=== PATIENT | female | born 1965 | race African-American/Black ===

== ENCOUNTER 2017-07-20 00:10 | Inpatient (IN) | payer OTHER ==
[2017-07-20] MEDS ORDERED: ASPIRIN 81 MG PO STA (00:12)
[2017-07-20] MEDS ORDERED: NITROGLYCERIN OINT 1 INCH/GM PACKET TOPICAL STA (00:12)
--- NOTE | 2017-07-20 00:16 | ED ---
General Adult HPI - General Stated complaint: chest pain Time Seen by Provider: 07/20/17 00:10 Source: RN notes reviewed - History of Present Illness Initial comments: This a 52-year-old female presents emergency department with past medical history significant for congestive heart failure pulmonary embolisms high blood pressure and smoking. Patient comes in tonight because she's had about 45 minutes of chest pain which radiates to her back. Patient states she is also mildly short of breath. Patient denies any diaphoresis. Patient denies any nausea. Patient states she's had no abdominal pain she denies nausea vomiting diarrhea. Patient denies headache she denies numbness or weakness. Patient denies lightheadedness or dizziness. Patient denies any recent fever chills or cough. Patient states yesterday she had chest pain went to the hospital across town and they discharged her home from the ER yesterday. Patient requested our facility today. Patient states she's only been in town 5 days because [facility] - Related Data Allergies Allergy/AdvReac Type Severity Reaction Status Date / Time No Known Allergies Allergy Verified 07/20/17 00:19 Review of Systems ROS Statement: Those systems with pertinent positive or pertinent negative responses have been documented in the HPI. ROS Other: All systems not noted in ROS Statement are negative. General Exam - General Exam Comments Initial Comments: GENERAL: Patient is well-developed and well-nourished. Patient is nontoxic and well- hydrated and is in mild distress. ENT: Neck is soft and supple. No significant lymphadenopathy is noted. Oropharynx is clear. Moist mucous membranes. Neck has full range of motion without eliciting any pain. EYES: The sclera were anicteric and conjunctiva were pink and moist. Extraocular movements were intact and pupils were equal round and reactive to light. Eyelids were unremarkable. PULMONARY: Unlabored respirations. Good breath sounds bilaterally. No audible rales rhonchi or wheezing was noted. CARDIOVASCULAR: There is a regular rate and rhythm without any murmurs gallops or rubs. ABDOMEN: Soft and nontender with normal bowel sounds. No palpable organomegaly was noted. There is no palpable pulsatile mass. SKIN: Skin is clear with no lesions or rashes and otherwise unremarkable. NEUROLOGIC: Patient is alert and oriented x3. Cranial nerves II through XII are grossly intact. Motor and sensory are also intact. Normal speech, volume and content. Symmetrical smile. MUSCULOSKELETAL: Normal extremities with adequate strength and full range of motion. LYMPHATICS: No significant lymphadenopathy is noted PSYCHIATRIC: Normal psychiatric evaluation. Normal interpersonal interactions appears functionally intact in deals appropriately with others. No signs of depression. No signs of anxiety. Course Vital Signs 07/20/17 07/20/17 07/20/17 00:11 00:22 00:57 Temperature 97.8 F Pulse Rate 65 71 Respiratory 18 18 18 Rate Blood Pressure 127/74 127/74 O2 Sat by Pulse 100 99 Oximetry Medical Decision Making - Medical Decision Making EKG shows normal sinus rhythm at 71 bpm SC interval 166 QRS is 76 QT intervals 438 QTC is 475. Patient's EKG shows no ST segment elevation or depression or T wave abnormalities are noted - Lab Data Result diagrams: 07/20/17 00:18 07/20/17 00:18 Lab Results 07/20/17 07/20/17 07/20/17 Range/Units 00:18 00:18 00:18 WBC 4.3 (3.8-10.6) k/uL RBC 4.52 (3.80-5.40) m/uL Hgb 13.2 (11.4-16.0) gm/dL Hct 41.9 (34.0-46.0) % MCV 92.7 (80.0-100.0) fL MCH 29.3 (25.0-35.0) pg MCHC 31.6 (31.0-37.0) g/dL RDW 12.7 (11.5-15.5) % Plt Count 231 (150-450) k/uL Neutrophils % (Manual) 48 % Lymphocytes % (Manual) 38 % Monocytes % (Manual) 12 % Eosinophils % (Manual) 2 % Neutrophils # (Manual) 2.06 (1.3-7.7) k/uL Lymphocytes # (Manual) 1.63 (1.0-4.8) k/uL Monocytes # (Manual) 0.52 (0-1.0) k/uL Eosinophils # (Manual) 0.09 (0-0.7) k/uL Nucleated RBCs 0 (0-0) /100 WBC Manual Slide Review Performed PT (9.0-12.0) sec INR (<1.2) APTT (22.0-30.0) sec D-Dimer (<0.60) mg/L FEU Sodium 141 (137-145) mmol/L Potassium 4.6 (3.5-5.1) mmol/L Chloride 110 H (98-107) mmol/L Carbon Dioxide 21 L (22-30) mmol/L Anion Gap 10 mmol/L BUN 24 H (7-17) mg/dL Creatinine 0.80 (0.52-1.04) mg/dL Est GFR (MDRD) Af Amer >60 (>60 ml/min/1.73 sqM) Est GFR (MDRD) Non-Af >60 (>60 ml/min/1.73 sqM) Glucose 101 H (74-99) mg/dL Calcium 9.0 (8.4-10.2) mg/dL Magnesium 1.9 (1.6-2.3) mg/dL Total Bilirubin 0.3 (0.2-1.3) mg/dL AST 28 (14-36) U/L ALT 42 (9-52) U/L Alkaline Phosphatase 106 (38-126) U/L Total Creatine Kinase 67 (30-135) U/L CK-MB (CK-2) 0.4 (0.0-2.4) ng/mL CK-MB (CK-2) Rel Index 0.6 Troponin I <0.012 (0.000-0.034) ng/mL NT-Pro-B Natriuret Pep pg/mL Total Protein 6.9 (6.3-8.2) g/dL Albumin 3.4 L (3.5-5.0) g/dL 07/20/17 07/20/17 Range/Units 00:18 00:18 WBC (3.8-10.6) k/uL RBC (3.80-5.40) m/uL Hgb (11.4-16.0) gm/dL Hct (34.0-46.0) % MCV (80.0-100.0) fL MCH (25.0-35.0) pg MCHC (31.0-37.0) g/dL RDW (11.5-15.5) % Plt Count (150-450) k/uL Neutrophils % (Manual) % Lymphocytes % (Manual) % Monocytes % (Manual) % Eosinophils % (Manual) % Neutrophils # (Manual) (1.3-7.7) k/uL Lymphocytes # (Manual) (1.0-4.8) k/uL Monocytes # (Manual) (0-1.0) k/uL Eosinophils # (Manual) (0-0.7) k/uL Nucleated RBCs (0-0) /100 WBC Manual Slide Review PT 11.2 (9.0-12.0) sec INR 1.1 (<1.2) APTT 25.0 (22.0-30.0) sec D-Dimer 0.58 (<0.60) mg/L FEU Sodium (137-145) mmol/L Potassium (3.5-5.1) mmol/L Chloride (98-107) mmol/L Carbon Dioxide (22-30) mmol/L Anion Gap mmol/L BUN (7-17) mg/dL Creatinine (0.52-1.04) mg/dL Est GFR (MDRD) Af Amer (>60 ml/min/1.73 sqM) Est GFR (MDRD) Non-Af (>60 ml/min/1.73 sqM) Glucose (74-99) mg/dL Calcium (8.4-10.2) mg/dL Magnesium (1.6-2.3) mg/dL Total Bilirubin (0.2-1.3) mg/dL AST (14-36) U/L ALT (9-52) U/L Alkaline Phosphatase (38-126) U/L Total Creatine Kinase (30-135) U/L CK-MB (CK-2) (0.0-2.4) ng/mL CK-MB (CK-2) Rel Index Troponin I (0.000-0.034) ng/mL NT-Pro-B Natriuret Pep 107 pg/mL Total Protein (6.3-8.2) g/dL Albumin (3.5-5.0) g/dL Disposition Clinical Impression: Unstable angina pectoris Disposition: ADMITTED IP TO THIS HOSP Referrals: None,Stated [Primary Care Provider] - 1-2 days Time of Disposition: 02:20
[2017-07-20 00:28] LABS: Aty Lym Flag Slight; CH 29.6; CHCM 32.1; HCT 41.9 % (34.0-46.0); HDW 2.48; HGB 13.2 gm/dL (11.4-16.0); MCH 29.3 pg (25.0-35.0); MCHC 31.6 g/dL (31.0-37.0); MCV 92.7 fL (80.0-100.0); Mean Platelet Volume 7.3; RBC 4.52 m/uL (3.80-5.40); RDW 12.7 % (11.5-15.5); WBC 4.3 k/uL (3.8-10.6); WBC (Perox) 4.16
--- NOTE | 2017-07-20 00:38 | XR ---
EXAMINATION TYPE: XR chest 2V DATE OF EXAM: 07/20/2017 COMPARISON: EXAMINATION TYPE: XR chest 2V DATE OF EXAM: 07/20/2017 COMPARISON: NONE HISTORY: Short of breath TECHNIQUE: 2 views FINDINGS: Heart is enlarged. There is no heart failure. There are chest leads. Costophrenic angles ar e clear. There is spurring in the thoracic spine. IMPRESSION: Mild cardiomegaly. No active cardiopulmonary disease.
[2017-07-20 00:41] LABS: ALT 42 U/L (9-52); AST 28 U/L (14-36); Alkaline Phosphatase 106 U/L (38-126); Anion Gap 10 mmol/L; Blood Urea Nitrogen 24 mg/dL (7-17); Carbon Dioxide 21 mmol/L (22-30); Chloride 110 mmol/L (98-107); Glucose 101 mg/dL (74-99); INR 1.1 (<1.2); Magnesium 1.9 mg/dL (1.6-2.3); Non-African American GFR(MDRD) >60 (>60 ml/min/1.73 sqM); Potassium 4.6 mmol/L (3.5-5.1); Prothrombin Time 11.2 sec (9.0-12.0); Sodium 141 mmol/L (137-145); Total Bilirubin 0.3 mg/dL (0.2-1.3); Total Protein 6.9 g/dL (6.3-8.2)
[2017-07-20 00:46] LABS: Creatine Kinase 67 U/L (30-135)
[2017-07-20] MEDS ORDERED: KETOROLAC 30 MG/ML 1 ML VIAL IVP STA (00:51)
[2017-07-20 00:55] LABS: Add Differential Manual Differential
[2017-07-20 00:59] LABS: Creatine Kinase MB 0.4 ng/mL (0.0-2.4); Troponin I <0.012 ng/mL (0.000-0.034)
[2017-07-20 01:03] LABS: Manual Review Performed; Nucleated Red Blood Cells 0 /100 WBC (0-0); Total Cells Counted 100
[2017-07-20] MEDS ORDERED: HEPARIN SODIUM,PORCINE 5,000 UNIT/ML 1 ML VIAL IV ONE (02:11)
[2017-07-20] MEDS ORDERED: HEPARIN SODIUM,PORCINE/D5W PMX 25,000 UNIT in DEXTROSE/WATER 1 500ML.BAG IV SCH (02:15)
[2017-07-20] MEDS ORDERED: NITROGLYCERIN SL TABS 0.4 MG TAB SUBLINGUAL PRN (02:15)
[2017-07-20] MEDS ORDERED: ACETAMINOPHEN TAB 325 MG TAB PO PRN (02:50)
--- NOTE | 2017-07-20 03:14 | P.HPIM ---
History of Present Illness H&P Date: 07/20/17 Chief Complaint: Chest pain and sob 52-year-old female presents to the emergency department because of worsening chest pain. The pain is located in the upper part of the chest, it radiates to the neck. It feels like a sharp pain, it is resting. Patient states she is also short of breath. Patient states that these symptoms have been going on for ''years'' but worsened over the past several days. She is also concerned about worsening lower back pain and foot pain. Patient denies any diaphoresis, nausea or vomiting. No palpitations, dizziness. No recent illness, no fever, chills or cough. Patient states yesterday she had chest pain went to the hospital across town and they discharged her home from the ER yesterday. Patient is originally from [place], receives all of her medical care in a [place] [facility]. In the emergency department she was given some nitroglycerin, started on heparin drip, placed on oxygen and subsequently was admitted to the hospital for further evaluation and management. Review of Systems 12 point review of system performed, negative except for HPI Past Medical History Past Medical History: Heart Failure Additional Past Medical History / Comment(s): Pulmonary embolism History of Any Multi-Drug Resistant Organisms: None Reported Past Surgical History: Tubal Ligation Additional Past Surgical History / Comment(s): Gallbladder surgery, patient not sure if she had cholecystectomy Past Psychological History: No Psychological Hx Reported Smoking Status: Current some day smoker Past Alcohol Use History: None Reported Past Drug Use History: None Reported Medications and Allergies Allergies Allergy/AdvReac Type Severity Reaction Status Date / Time No Known Allergies Allergy Verified 07/20/17 00:19 Physical Exam Vitals: Vital Signs Temp Pulse Resp BP Pulse Ox 07/20/17 02:30 97.1 F L 68 20 123/74 100 07/20/17 00:57 71 18 127/74 99 07/20/17 00:22 18 07/20/17 00:11 97.8 F 65 18 127/74 100 Intake and Output 07/19/17 07/19/17 07/20/17 14:59 22:59 06:59 Other: Weight 108.862 kg Patient Weight 07/20/17 06:59 Weight 108.862 kg Constitutional: No acute distress, conversant, pleasant Eyes:Anicteric sclerae, moist conjunctiva, no lid-lag, PERRLA, ENMT: Oropharynx clear, no erythema, exudates Neck: Supple, FROM, no masses, or JVD, No carotid bruits, No thyromegaly Lungs: Clear to auscultation, Clear to percussion, Normal respiratory effort, no accessory muscle use Cardiovascular: Heart regular in rate and rhythm, No murmurs, gallops, or rubs, No peripheral edema Abdominal: Soft, Nontender, no guarding, rebound or rigidity, Normoactive bowel sounds, No hepatomegaly, No splenomegaly, No palpable mass Skin: Normal temperature, tone, texture, turgor, no induration, No subcutaneous nodules, No rash, lesions, No ulcers Extremities: No digital cyanosis, No clubbing, Pedal pulses intact and symmetrical, Radial pulses intact and symmetrical, No calf tenderness Psychiatric: Alert and oriented to person, place and time, appropriate affect, intact judgement Neuro: Muscles Strength 5/5 in all 4 extremities, Sensation to light touch grossly present throughout, Cranial nerves II-XII grossly intact, no focal sensory deficits Results CBC & Chem 7: 07/20/17 00:18 07/20/17 00:18 Labs: Abnormal Lab Results - Last 24 Hours (Table) 07/20/17 Range/Units 00:18 Chloride 110 H (98-107) mmol/L Carbon Dioxide 21 L (22-30) mmol/L BUN 24 H (7-17) mg/dL Glucose 101 H (74-99) mg/dL Albumin 3.4 L (3.5-5.0) g/dL Assessment and Plan Plan: #1 acute worsening chest pain and shortness of breath Labs and chest x-ray, EKG reviewed Admit to [facility] for observation Telemetry monitoring Started on heparin drip in the emergency department, will continue Nitroglycerin when necessary for chest pain Aspirin 81 mg daily Cycle troponins Consider performing a stress test in the morning if the chest pain resolves Need to obtain the records from [facility] #2 hypertension, benign Blood pressure currently stable Continue Coreg and lisinopril #3 history of pulmonary embolism The patient states that she was taken off Coumadin 3 month ago Monitor off anticoagulation #4 DVT prophylaxis On heparin
[2017-07-20 03:28] VITALS: BMI 40.0
[2017-07-20] MEDS: MORPHINE SULFATE 2 MG/ML SYRINGE IV PRN ×5 (03:49→23:45)
[2017-07-20] MEDS: HYDROcodone/APAP 10-325MG 1 EACH TAB PO PRN ×2 (05:06→18:41)
[2017-07-20] MEDS ORDERED: NITROGLYCERIN OINT 1 INCH/GM PACKET TOPICAL SCH (06:00)
[2017-07-20 08:00] LABS: Basophils % (A) 1 %; CH 29.2; CHCM 31.3; Eosinophils # (A) 0.2 k/uL (0-0.7); Eosinophils % (A) 4 %; HCT 43.6 % (34.0-46.0); HDW 2.46; HGB 13.5 gm/dL (11.4-16.0); Hypochromasia Slight; Luc # (Auto) 0.19; Luc % (Auto) 4; Lymphocytes # (A) 1.8 k/uL (1.0-4.8); Lymphocytes % (A) 37 %; MCHC 30.9 g/dL (31.0-37.0); MCV 93.9 fL (80.0-100.0); Monocytes # (A) 0.3 k/uL (0-1.0); Monocytes % (A) 6 %; Neutrophils # (A) 2.3 k/uL (1.3-7.7); Neutrophils % (A) 48 %; RBC 4.64 m/uL (3.80-5.40); RDW 12.5 % (11.5-15.5); WBC 4.8 k/uL (3.8-10.6); WBC (Perox) 4.61
[2017-07-20 08:11] LABS: Creatine Kinase 59 U/L (30-135)
[2017-07-20 08:24] LABS: ALT 42 U/L (9-52); AST 38 U/L (14-36); Alkaline Phosphatase 123 U/L (38-126); Anion Gap 11 mmol/L; Blood Urea Nitrogen 23 mg/dL (7-17); Calcium 8.7 mg/dL (8.4-10.2); Carbon Dioxide 19 mmol/L (22-30); Chloride 111 mmol/L (98-107); Creatine Kinase MB 0.5 ng/mL (0.0-2.4); Glucose 110 mg/dL (74-99); Magnesium 1.9 mg/dL (1.6-2.3); Non-African American GFR(MDRD) >60 (>60 ml/min/1.73 sqM); Phosphorus 3.6 mg/dL (2.5-4.5); Potassium 4.5 mmol/L (3.5-5.1); Sodium 141 mmol/L (137-145); Total Bilirubin 0.2 mg/dL (0.2-1.3); Troponin I <0.012 ng/mL (0.000-0.034)
[2017-07-20] MEDS ORDERED: AMINOPHYLLINE 500 MG/20 ML VIAL IV PRN (08:51)
[2017-07-20] MEDS ORDERED: REGADENOSON 0.4 MG/5 ML SYRINGE IV ONE (08:51)
--- NOTE | 2017-07-20 12:19 | P.CRDCN ---
History of Present Illness Consult date: 07/20/17 History of present illness: This is a 52-year-old -[place] female past medical history significant for hypertension, congestive heart failure, DVT and pulmonary embolism. She sees a engagement specialist in [facility]. [facility] is here [facility]. Her current cardiac medications include Coreg 12.5 mg twice a day lisinopril 10 mg daily and aspirin 81 mg daily. She states up until 3 months ago she was on Coumadin regularly. She was advised to stop and start taking aspirin. We have been asked to see this patient for complaints of chest heaviness that has been going on for a couple of days. It is associated with shortness of breath on exertion and mild lightheadedness. She denies nausea, diaphoresis, vomiting or radiation of the pain. She went to [facility] over the weekend and underwent evaluation as well. Records will be requested. She has a daily smoker. EKG reveals sinus mechanism with nonspecific T-wave abnormalities. Cardiac enzymes negative 1, hemoglobin 13.2, platelets 231, d-dimer 0.58, potassium 4.6, magnesium 1.9, BUS and 24, creatinine 0.8. Blood pressure 111/79 with a heart rate of 70. Review of Systems CONSTITUTIONAL: Denies fever. Denies chills. EYES: Denies blurred vision. Denies vision changes. Denies eye pain. EARS, NOSE, MOUTH & THROAT: Denies headache. Denies sore throat. Denies ear pain. CARDIOVASCULAR: Complains of chest pain with shortness of breath. Denies orthopnea. Denies PND. Denies palpitations. RESPIRATORY: Denies cough. GASTROINTESTINAL: Denies abdominal pain. Denies diarrhea. Denies constipation. Denies nausea. Denies vomitng. MUSCULOSKELETAL: Denies myalgias. INTEGUMENTARY: Denies pruitis. Denies rash. NEUROLOGIC: Denies numbness. Denies tingling. Denies weakness. PSYCHIATRIC: Denies anxiety. Denies depression. ENDOCRINE: Denies fatigue. Denies weight change. Denies polydipsia. Denies polyurina. GENITOURINARY: Denies burning, hematuria or urgency with micturation. HEMATOLOGIC: Denies history of anemia. Denies bleeding. Past Medical History Past Medical History: Asthma, Chest Pain / Angina, Heart Failure, Hypertension, Pulmonary Embolus (PE) Additional Past Medical History / Comment(s): Pulmonary embolism X3, DVT in arms and legs, low blood sugar, back issues History of Any Multi-Drug Resistant Organisms: None Reported Past Surgical History: Tubal Ligation Additional Past Surgical History / Comment(s): Gallbladder surgery, patient not sure if she had cholecystectomy. Gallstones Past Anesthesia/Blood Transfusion Reactions: No Reported Reaction Smoking Status: Current every day smoker - Past Family History Mother Family Medical History: Diabetes Mellitus Father Family Medical History: Cancer Additional Family Medical History / Comment(s): Prostate CA Medications and Allergies Home Medications Medication Instructions Recorded Confirmed Type Aspirin 81 mg PO DAILY 07/20/17 07/20/17 History Carvedilol [Coreg] 12.5 mg PO BID 07/20/17 07/20/17 History HYDROcodone/APAP 10-325MG [[place] 1 tab PO Q8H PRN 07/20/17 07/20/17 History 10-325] Lisinopril [Zestril] 10 mg PO DAILY 07/20/17 07/20/17 History Promethazine/Phenyleph/Codeine 5 ml PO TID PRN 07/20/17 07/20/17 History [Promethazine Vc-Codeine Syrup] Allergies Allergy/AdvReac Type Severity Reaction Status Date / Time No Known Allergies Allergy Verified 07/20/17 08:56 Physical Exam Vitals: Vital Signs Temp Pulse Pulse Resp BP BP Pulse Ox 07/20/17 08:00 97.5 F L 70 18 111/79 96 07/20/17 03:53 18 07/20/17 03:12 97.9 F 64 18 116/60 100 07/20/17 02:30 97.1 F L 68 20 123/74 100 07/20/17 00:57 71 18 127/74 99 07/20/17 00:22 18 07/20/17 00:11 97.8 F 65 18 127/74 100 Intake and Output 07/19/17 07/20/17 07/20/17 22:59 06:59 14:59 Intake Total 240 Output Total 0 Balance 0 240 Intake: Oral 240 Output: Stool 0 Other: Weight 116 kg GENERAL: This is a 52-year-old -[place] female in no apparent distress at the time of my examination. Obese. HEENT: Head is atraumatic, normocephalic. Pupils are equal, round. Sclerae anicteric. Conjunctivae are clear. Mucous membranes of the mouth are moist. Neck is supple. There is no jugular venous distention. No carotid bruit is heard. LUNGS: Clear to auscultation no wheezes, rales or rhonchi. No chest wall tenderness is noted on palpation or with deep breathing. HEART: Regular rate and rhythm without murmurs, rubs or gallops. S1 and S2 heard. ABDOMEN: Soft, nontender. Bowel sounds are heard. No organomegaly noted. EXTREMITIES: 2+ peripheral pulses with trace evidence of peripheral edema and no calf tenderness noted. Right leg pain/discomfort. NEUROLOGIC: Patient is awake, alert and oriented x3. Results 07/20/17 07:26 07/20/17 07:26 Cardiac Enzymes 07/20/17 07/20/17 Range/Units 00:18 00:18 AST 28 (14-36) U/L CK-MB (CK-2) 0.4 (0.0-2.4) ng/mL Troponin I <0.012 (0.000-0.034) ng/mL Coagulation 07/20/17 07/20/17 Range/Units 00:18 07:26 PT 11.2 (9.0-12.0) sec APTT 25.0 45.0 H (22.0-30.0) sec CBC 07/20/17 Range/Units 00:18 WBC 4.3 (3.8-10.6) k/uL RBC 4.52 (3.80-5.40) m/uL Hgb 13.2 (11.4-16.0) gm/dL Hct 41.9 (34.0-46.0) % Plt Count 231 (150-450) k/uL Comprehensive Metabolic Panel 07/20/17 Range/Units 00:18 Sodium 141 (137-145) mmol/L Potassium 4.6 (3.5-5.1) mmol/L Chloride 110 H (98-107) mmol/L Carbon Dioxide 21 L (22-30) mmol/L BUN 24 H (7-17) mg/dL Creatinine 0.80 (0.52-1.04) mg/dL Glucose 101 H (74-99) mg/dL Calcium 9.0 (8.4-10.2) mg/dL AST 28 (14-36) U/L ALT 42 (9-52) U/L Alkaline Phosphatase 106 (38-126) U/L Total Protein 6.9 (6.3-8.2) g/dL Albumin 3.4 L (3.5-5.0) g/dL Current Medications Generic Name Dose Route Start Last Admin Trade Name Freq PRN Reason Stop Dose Admin Acetaminophen 650 mg 07/20/17 02:50 Tylenol Tab PO Q6HR PRN Mild Pain or Fever > 100.5 Hydrocodone Bitart/Acetaminophen 1 each 07/20/17 03:45 07/20/17 05:06 [place] 10 PO 1 each Q8HR PRN Administration pain Aspirin 325 mg 07/21/17 09:00 Aspirin PO DAILY [facility] Carvedilol 12.5 mg 07/20/17 09:00 Coreg PO BID [facility] Heparin Sodium/Dextrose 25,000 500 mls @ 20.03 mls/hr 07/20/17 02:15 02:27 unit/ IV Solution IV 9.2 units/kg/hr .Q24H MATTHEW 20.03 mls/hr Protocol Administration 9.2 UNITS/KG/HR Lisinopril 10 mg 07/20/17 09:00 Zestril PO DAILY [facility] Morphine Sulfate 2 mg 07/20/17 02:50 07/20/17 03:49 Morphine Sulfate (Inj) IV 2 mg Q4HR PRN Administration Severe Pain Nitroglycerin 1 inch 07/20/17 06:00 07/20/17 05:30 Nitro-Bid Oint TOPICAL Not Given Q6HR [facility] Nitroglycerin 0.4 mg 07/20/17 02:15 Nitrostat SUBLINGUAL Q5M PRN Chest Pain Intake and Output 07/19/17 07/20/17 07/20/17 22:59 06:59 14:59 Intake Total 240 Output Total 0 Balance 0 240 Intake: Oral 240 Output: Stool 0 Other: Weight 116 kg 07/20/17 00:18 07/20/17 00:18 Assessment and Plan Plan: ASSESSMENT 1. Chest pain, atypical 2. Essential hypertension 3. History of heart failure unknown type 4. Chronic tobacco abuse 5. History of DVT and PE 6. Obesity PLAN Obtain echocardiogram to assess cardiac structure and function. Lexiscan stress test to evaluate for acute coronary event. [facility]. If this testing is negative, from a cardiac standpoint, she will be stable for discharge home. We recommend she follows up with her primary engagement specialist out of [place], [place]. Nurse Practitioner note has been reviewed, I agree with a documented findings and plan of care. Patient was seen and examined.
[2017-07-20] MEDS: LISINOPRIL 10 MG TAB PO SCH (13:10)
[2017-07-20] MEDS: CARVEDILOL 12.5 MG TAB PO SCH ×2 (13:10→23:43)
--- NOTE | 2017-07-20 13:30 | ECHOF ---
Referral Reason:chest pain MEASUREMENTS -------- HEIGHT: 170.2 cm WEIGHT: 115.7 kg BP: 138/93 RVIDd: 2.1 cm (< 3.3) IVSd: 1.1 cm (0.6 - 1.1) LVIDd: 5.2 cm (3.9 - 5.3) LVPWd: 1.2 cm (0.6 - 1.1) IVSs: 1.6 cm LVIDs: 3.1 cm LVPWs: 1.9 cm LAESV Index (A-L): 23.20 ml/m Ao Diam: 2.7 cm (2.0 - 3.7) AV Cusp: 1.6 cm (1.5 - 2.6) LA Diam: 3.6 cm (2.7 - 3.8) MV E Moises: 0.83 m/s MV DecT: 231 ms MV A Moises: 0.84 m/s MV E/A Ratio: 0.99 RAP: 5.00 mmHg RVSP: 24.52 mmHg FINDINGS -------- Sinus rhythm with extra systolic beats. This was a technically adequate study. The left ventricular size is normal. There is borderline concentric left ventricular hypertrophy. Overall left ventricular systolic function is mildly impaired with, an EF between 45 - 50 %. The right ventricle is normal in size and function. Normal LA size by volume 22+/-6 ml/m2. The right atrium is normal in size. The aortic valve is trileaflet, and appears structurally normal. No aortic stenosis or regurgitation. The mitral valve leaflets are mildly thickened. Mild mitral regurgitation is present. Trace tricuspid regurgitation present. Right ventricular systolic pressure is normal at < 35 mmHg. There is no evidence of pulmonary hypertension. The pulmonic valve is normal. The aortic root size is normal. Normal inferior vena cava with normal inspiratory collapse consistent with estimated right atrial pressure of 5 mmHg. The pericardium is normal. There is no pericardial effusion. CONCLUSIONS -------- 1. Sinus rhythm with extra systolic beats. 2. Trace tricuspid regurgitation present. 3. Right ventricular systolic pressure is normal at < 35 mmHg. 4. There is no evidence of pulmonary hypertension. 5. The aortic root size is normal. 6. There is no pericardial effusion. 7. This was a technically adequate study. 8. The left ventricular size is normal. 9. There is borderline concentric left ventricular hypertrophy. 10. Overall left ventricular systolic function is mildly impaired with, an EF between 45 - 50 %. 11. Normal LA size by volume 22+/-6 ml/m2. 12. The aortic valve is trileaflet, and appears structurally normal. No aortic stenosis or regurgitation. 13. The mitral valve leaflets are mildly thickened. 14. Mild mitral regurgitation is present. SALES EXECUTIVE: Ky Weiner RDCS
--- NOTE | 2017-07-20 13:31 | NM ---
EXAMINATION TYPE: NM stress lexiscan cardiolite DATE OF EXAM: 07/20/2017 COMPARISON: NONE HISTORY: Chest pain TECHNIQUE: After the intravenous administration of 12 mCi Tc 99m Sestamibi - Cardiolite resting SPEC T images acquired 45 minutes post injection. The patient received 0.4mg Lexiscan, 28.9 mCi Tc 99m Sestamibi - Stress images obtained [address] injection FINDINGS: Review of stress and rest SPECT images demonstrates a moderate-sized area of stress-induced reversibi lity involving the apex of the myocardium.. Gated analysis shows reduced wall motion activity involv ing the apical segment of the myocardium with an estimated left ventricular ejection fraction of 45 % . IMPRESSION: 1. Findings compatible with stress-induced reversible ischemia involving the apex of the myocardium. A [employer] message has been communicated to Ramakrishna Andino MD~[id number] via the [employer] system on 07/20/2017 1:28 PM, Message ID [id number].
[2017-07-20] MEDS ORDERED: SODIUM CHLORIDE 0.9% 1,000 ML in EMPTY BAG 1 BAG IV ONE (14:01)
[2017-07-20] MEDS ORDERED: ALPRAZolam 0.5 MG TAB PO PRN (14:01)
[2017-07-20] MEDS ORDERED: ALPRAZolam 0.25 MG TAB PO PRN (14:01)
[2017-07-20] MEDS ORDERED: ATORVASTATIN 80 MG TAB PO STA (14:01)
--- NOTE | 2017-07-20 14:05 | EST ---
EXERCISE STRESS AGE: 52 SEX: F HT: 6'1" WT: 255 PROTOCOL: LEXISCAN CARDIOLITE STRESS TEST HEART RATE REST: 70 BLOOD PRESSURE REST: 138/93 MAXIMUM HEART RATE ACHIEVED: 89 MAXIMUM BLOOD PRESSURE: 138/93 INDICATIONS: Chest pain. DATE OF SERVICE: 07/20/2017 CLINICAL INFORMATION: STRESS DATA: Pretesting physical examination showed a heart rate of 70. Pressure is 138/93 mmHg. Baseline EKG showed sinus rhythm. A 0.4 mg of Lexiscan was given to the patient over 15 seconds per protocol. Max heart rate was 89 beats per minute. and maximum pressure was 138/93 mmHg. Clinically, the patient did not have any symptoms of chest pain or discomfort and the EKG did not show any significant ST or T-wave abnormalities consistent with ischemia. CONCLUSION: 1. Nondiagnostic electrocardiogram stress testing response to Lexiscan. 2. Please follow up on the Cardiolite portion on a separate report from the Radiology Department. MMODL / IJN: [id number] /
[2017-07-20 15:06] LABS: Creatine Kinase 57 U/L (30-135)
[2017-07-20 15:18] LABS: Creatine Kinase MB 0.6 ng/mL (0.0-2.4); Troponin I <0.012 ng/mL (0.000-0.034)
--- NOTE | 2017-07-20 15:20 | P.PN ---
Progress Note - Text Progress Note Date: 07/20/17 Lexiscan stress test reveals findings compatible with stress induced reversible ischemia involving the apex of the myocardium. The patient has been notified of these findings and we have recommended she move forward with cardiac catheterization tomorrow morning. I have discussed the risks, benefits and alternative therapies for the above-mentioned procedure and for both sedation/ analgesia as well as necessary blood product administration, if indicated, as they pertain to this patient. The patient has indicated understanding and acceptance of the risks and procedures discussed. Questions have been answered properly. The plan of care has also been discussed with the patient's daughter and brother over the phone. At this time she is unsure whether or not she wants to proceed with the above stated procedure. I further I did her with education materials to review as well as an informational video to watch the television. I have advised her that we will keep her nothing by mouth after midnight if she should decide to move forward with this procedure in the morning. We will reevaluate in the morning.
[2017-07-20] MEDS: HEPARIN SODIUM,PORCINE 5,000 UNIT/ML 1 ML VIAL SQ SCH (23:44)
[2017-07-20] MEDS ORDERED: MENTHOL (NICE) LOZENGE MUCOUS MEM PRN (23:52)
[2017-07-21] MEDS ORDERED: ONDANSETRON 4 MG/2 ML VIAL IVP PRN (01:01)
[2017-07-21] MEDS: MORPHINE SULFATE 2 MG/ML SYRINGE IV PRN (03:48)
[2017-07-21 05:56] LABS: CH 29.4; CHCM 31.3; HCT 42.9 % (34.0-46.0); HDW 2.52; HGB 13.4 gm/dL (11.4-16.0); Hypochromasia Slight; MCH 29.6 pg (25.0-35.0); MCHC 31.4 g/dL (31.0-37.0); MCV 94.4 fL (80.0-100.0); Mean Platelet Volume 7.4; RBC 4.54 m/uL (3.80-5.40); RDW 12.5 % (11.5-15.5); WBC 4.2 k/uL (3.8-10.6)
[2017-07-21 06:08] LABS: Anion Gap 8 mmol/L; Blood Urea Nitrogen 16 mg/dL (7-17); Carbon Dioxide 22 mmol/L (22-30); Chloride 108 mmol/L (98-107); Cholesterol 171 mg/dL (<200); Glucose 100 mg/dL (74-99); HDL Cholesterol 47 mg/dL (40-60); Non-African American GFR(MDRD) >60 (>60 ml/min/1.73 sqM); Potassium 4.6 mmol/L (3.5-5.1); Sodium 138 mmol/L (137-145)
[2017-07-21] MEDS: HEPARIN SODIUM,PORCINE 5,000 UNIT/ML 1 ML VIAL SQ SCH ×2 (06:54→17:20)
[2017-07-21] MEDS: CARVEDILOL 12.5 MG TAB PO SCH (06:56)
[2017-07-21] MEDS: LISINOPRIL 10 MG TAB PO SCH (06:56)
[2017-07-21] MEDS ORDERED: HEPARIN SODIUM 1,000 UN/ML (10ML VL) ONE (08:08)
[2017-07-21] MEDS ORDERED: MIDAZOLAM 2 MG/2 ML VIAL ONE (08:08)
[2017-07-21] MEDS ORDERED: LIDOCAINE 2% INJ 20 MG/ML (20 ML MDV) ONE (08:08)
[2017-07-21] MEDS ORDERED: VERAPAMIL 2.5 MG/ML 2 ML AMP ONE (08:08)
[2017-07-21 08:29] VITALS: RESP 18
[2017-07-21] MEDS ORDERED: MIDAZOLAM 2 MG/2 ML VIAL IV ONE (08:59)
[2017-07-21] MEDS ORDERED: ASPIRIN 325 MG TAB PO SCH (09:00)
[2017-07-21] MEDS ORDERED: LIDOCAINE 2% INJ 20 MG/ML SQ ONE ×2 (09:05→09:09)
[2017-07-21] MEDS ORDERED: VERAPAMIL SYRINGE (5 MG/10 ML) INTRAARTER ONE ×2 (09:09→09:20)
[2017-07-21] MEDS ORDERED: HEPARIN SODIUM 1,000 UN/ML (10ML VL) IV ONE (09:10)
[2017-07-21] MEDS ORDERED: fentaNYL (PF) 50 MCG/ML 2 ML AMP ONE (09:14)
[2017-07-21] MEDS ORDERED: fentaNYL (PF) 50 MCG/ML 2 ML AMP IV ONE (09:16)
[2017-07-21] MEDS ORDERED: IOHEXOL 350 MG/ML 125ML BOTTLE INJ ONE (09:22)
[2017-07-21] MEDS ORDERED: RX INFO: IV CONTRAST WAS GIVEN 1 EACH MISC MISCELLANE PRN (09:26)
[2017-07-21] MEDS ORDERED: SODIUM CHLORIDE 0.9% 1,000 ML IV SCH (09:30)
[2017-07-21] MEDS ORDERED: SODIUM CHLORIDE 0.9% 1,000 ML IV ONE (09:38)
--- NOTE | 2017-07-21 09:51 | CC ---
CARDIAC CATHETERIZATION REPORT DATE OF SERVICE: 07/21/2017 PERFORMING PHYSICIAN: Dexter Harrison MD, Recruiting Coordinator. PROCEDURE PERFORMED: 1. Selective right and left coronary angiogram. 2. Left heart catheterization. 3. Left ventriculography. INDICATION: This is a pleasant 52-year-old female patient who was admitted to the hospital with chest discomfort and underwent myocardial perfusion imaging stress that showed apical ischemia. APPROACH: Right radial artery. COMPLICATION: None. LEVEL OF SEDATION: Moderate with a sedation length of 19 minutes. PROCEDURE DESCRIPTION: After obtaining an informed consent, the patient was brought to Cardiac General Manager. The right radial artery was cannulated using micropuncture technique, the micropuncture wire passed easily. Then I placed a 6-Thai sheath in the right radial artery. Subsequently, I did selective right and left coronary angiogram using JR4 and JL3.5 catheters. After that, I performed left heart catheterization and subsequently left ventriculography using 5-Thai pigtail catheter. The procedure was completed without any complication. SELECTIVE CORONARY ANGIOGRAM: 1. The RCA is a large caliber vessel and it is a dominant vessel. It is angiographically normal. Distally bifurcates into PDA and PLV branches. Both are angiographically normal. 2. The left main is angiographically normal. It bifurcates into the left circumflex and left anterior descending artery. 3. The left circumflex is a large caliber vessel. It is a nondominant vessel with the proximal left circumflex is angiographically normal. It gives rise into 3 obtuse marginal branches that seems to be angiographically normal. The mid left circumflex is normal and the circumflex distally is normal. 4. THE LEFT ANTERIOR DESCENDING ARTERY: The proximal LAD is angiographically normal and gives rise into the first diagonal branch which seems to be angiographically normal. The mid LAD is normal and gives rise into second diagonal, which seems to be normal as well and the LAD distally is angiographically normal. HEMODYNAMICS: The left ventricular end-diastolic pressure was 12 mmHg and no gradient was identified across the aortic valve. Left ventriculography was performed in the WILLSON projection and using a power injection. The LV seems to be slightly dilated with EF about 40% to 45%. Global mild hypokinesia was identified. CONCLUSION: 1. Normal coronary angiogram. 2. Dominant right coronary system. 3. Mildly impaired left ventricular function with an ejection fraction between 40% to 45%. MMODL / IJN: [id number] /
--- NOTE | 2017-07-21 16:15 | P.DS ---
Providers Date of admission: 07/20/17 14:40 Expected date of discharge: 07/21/17 Attending physician: Hola Aleman MD Consults: 07/20/17 02:15 Consult Physician Urgent Consulting Provider: [facility] Consult Reason/Comments: Unstable angina Do you want consulting provider notified?: Yes 07/20/17 07:34 Consult Physician Routine Consulting Provider: Dexter Harrison Consult Reason/Comments: chest pain Do you want consulting provider notified?: Yes Primary care physician: Stated None - Discharge Diagnosis(es) (1) Atypical chest pain positive stress test normal coronary angiogram Current Visit: Yes Status: Acute (2) Hypertension Current Visit: Yes Status: Acute (3) CHF (congestive heart failure) compensated systolic chf with LVEF 40-45% continue coreg and lisinopril Current Visit: Yes Status: Acute (4) History of venous thromboembolism s/p coumadin, stopped 3 months ago continue with aspirin Current Visit: Yes Status: Acute (5) DVT prophylaxis on heparin sc tid Current Visit: Yes Status: Acute Hospital Course: 52-year-old female with history of Hypertension and pulmonary embolism (stopped coumadin 3 months ago) presents due to chest pain radiating to the neck asssociated with occasional shortness of breath. SHe reported that these symptoms has been going on for several years, however got worse over the past few days. She was admitted under observation , a stress test performed and was positive, for which cardiology performed left heart cath through the right wrist , which showed normal coronary angiogram. patient was seen and examined , reports no chest pain or trouble breathing. tolerating diet. Cardiology cleared the patient for discharge. Constitutional: vital signs stable, Not in acute distress, pleasant, conversant Lungs: Clear to auscultation bilaterally, normal respiratory effort Cardiovascular: Regular rate and rhythm, no murmurs, no gallops, no rubs, no peripheral edema Gastrointestinal: Soft, no tenderness to palpation, bowel sounds positive Extremities: No digital cyanosis or clubbing, no calf muscle tenderness Psych: Alert, oriented to place, person and time labs reviewed and are unremarkable. Upon discharging the patient, she raised concerns regarding STD as her previous partner was recently diagnosed with it and treated with antibiotics. she reports vaginal discharge and itching, but denies any vaginal pain, fever, or chills. When asked about vaginal discharge color, odour, consistency, she replied i dont know, and did not provide any details about duration of discharge , timing, any bleeding. Then she started talking about her back pain , and asking for norco refill along with codeine for chronic cough. She reports that her PCP is in [place] and she wants a refill on her pain medications due to disk problems. She becomes defensive when asked more questions about her chronic pain, and started requesting a different doctor, specifically the "one" who told her that he would give her norco upon discharge. I had the RN at bedside to witness our conversation. I clearly told the patient that i will give her a month supply on all her current medications, except the pain medication that I would gladly give her a week supply of norco (20 tabs) and schedule her an appointment with Dr. Telles (who is local and across the street from [facility]) my self as I know she is accepting new patients and able to accomodate her within 2-3 days, so she can follow up with her after discharge. The patient refused to follow up with any PCP claiming that she does not have time to do that and insisted on getting 1 month supply of norco (90 tabs). Patient then requested to talk to a different physician, and when realized that the night doctor will come in at 7 pm, she requested to wait for that doctor. I explained that ER pharmacy will close at 7 pm, and that i can send the rest of her prescription now so she get them refilled, she declined that option and requested to wait for the night physician. She also requested cough medicine but nothing other than codeine. I explained to her that I would gladly send a prescription for her current cardiac meds including a 1 week supply of norco to the ER pharmacy now in case she changes her mind. I explained that thorough testing and examination should be performed in the outpatient setting to find the exact diagnosis for her back pain and work on a treatment plan, and that norco should only be used temporarily and not half-way. Physical therapy when appropriate along with weight loss could be the two best options for her back problem but should be done after her PCP runs the appropriate testing for that purpose. 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 Patient was clearly showing drug seeking behavior. OP follow up with cardiology and PCP. contact information provided 42 minutes were spent in this patient discharge more than 50% of the time spent in counseling and coordinating care. Pertinent Studies: lexiscan stress test was positive Procedures: left heart cath Patient Condition at Discharge: Stable Plan - Discharge Summary New Discharge Prescriptions: New Aspirin EC [Ecotrin Low Dose] 81 mg PO DAILY #30 tablet. HYDROcodone/APAP 5-325MG [[place] 5-325] 1 tab PO Q12H PRN #20 tab PRN Reason: Pain Continue Carvedilol [Coreg] 12.5 mg PO BID #60 tab Lisinopril [Zestril] 10 mg PO DAILY #30 tab Discontinued HYDROcodone/APAP 10-325MG [[place] 10-325] 1 tab PO Q8H PRN PRN Reason: pain Aspirin 81 mg PO DAILY Promethazine/Phenyleph/Codeine [Promethazine Vc-Codeine Syrup] 5 ml PO TID PRN PRN Reason: Cough Discharge Medication List Aspirin EC [Ecotrin Low Dose] 81 mg PO DAILY #30 tablet. 07/21/17 [Rx] Carvedilol [Coreg] 12.5 mg PO BID #60 tab 07/21/17 [Rx] HYDROcodone/APAP 5-325MG [[place] 5-325] 1 tab PO Q12H PRN #20 tab 07/21/17 [Rx] Lisinopril [Zestril] 10 mg PO DAILY #30 tab 07/21/17 [Rx] Follow up Appointment(s)/Referral(s): Dexter Harrison MD [STAFF PHYSICIAN] - 1 Week (Office will call patient with appointment ) None,Stated [Primary Care Provider] - 1-2 days Alexandra Telles MD [STAFF PHYSICIAN] - 1 Week Patient Instructions/Handouts: Heart Failure (GEN), Chest Wall Pain (GEN) Activity/Diet/Wound Care/Special Instructions: activity as tolerated low fat low salt diet Discharge Disposition: HOME SELF-CARE
[2017-07-21 16:37] VITALS: BP 152/95; PULSE 65; TEMP 97.5
== END 2017-07-21 19:38 | disposition home or self-care (01) | DRG 287 ==
LOC: EC 00:10 → 3OBS 02:17 → OBSVTOIN 14:40 → 3OBS 07-21 01:53
PROVIDERS: ADMIT Internal Medicine; ATTEND Internal Medicine
PROC: B2111ZZ Fluoroscopy of Multiple Coronary Arteries using Low Osmolar Contrast (ICD-10-PCS; 2017-07-21)
PROC: B2151ZZ Fluoroscopy of Left Heart using Low Osmolar Contrast (ICD-10-PCS; 2017-07-21)
PROC: 4A023N7 Measurement of Cardiac Sampling and Pressure, Left Heart, Percutaneous Approach (ICD-10-PCS; principal; 2017-07-21 09:00)
DX: R07.89 Other chest pain (principal); I11.0 Hypertensive heart disease with heart failure; I50.22 Chronic systolic (congestive) heart failure; Z68.41 Body mass index [BMI] 40.0-44.9, adult; F17.200 Nicotine dependence, unspecified, uncomplicated; E66.9 Obesity, unspecified; G89.29 Other chronic pain; M54.9 Dorsalgia, unspecified; J45.909 Unspecified asthma, uncomplicated; N89.8 Other specified noninflammatory disorders of vagina; Z76.5 Malingerer [conscious simulation]; Z79.82 Long term (current) use of aspirin; Z79.899 Other long term (current) drug therapy; Z86.718 Personal history of other venous thrombosis and embolism; Z86.711 Personal history of pulmonary embolism
CPT/HCPCS: 36415; 71020; 78452; 80048; 80053; 80061; 82550; 82553; 83735; 83880; 84100; 84484; 85025; 85027; 85379; 85610; 85730; 87491; 87591; 93005; 93017; 93306; 93458; 96365; 96375; 96376; 99285

== ENCOUNTER 2017-08-30 20:14 | Emergency (ER) | payer OTHER ==
[2017-08-30 20:41] VITALS: TEMP 98.3
--- NOTE | 2017-08-30 21:17 | ED ---
Chest Pain HPI - General Chief Complaint: Chest Pain Stated Complaint: chest pain Time Seen by Provider: 08/30/17 21:05 Source: patient, EMS Mode of arrival: EMS Limitations: no limitations - History of Present Illness Initial Comments: This patient is a 52-year-old woman coming to the emergency department to be evaluated for substernal chest pain that came on approximately 3 hours ago while she was sitting and resting. She states that the pain is aching, pain, about 8 out of 10 intensity. She states that it is constant, and she has not noted worsening or relieving factors. She states that she talked to her brother on the phone tonight and then that he told her she probably should be seen at the hospital and she called EMS. She was given aspirin and 2 nitroglycerin and states that the pain was only minimally altered probably still being about a 7 out of 10. When asked about associated symptoms she denies anything other than having some right hand tingling. She has not had dyspnea, diaphoresis, nausea or vomiting, palpitations, lightheadedness or syncope. Review of systems otherwise reveals patient having some pain to the right first and second toes and stating that this is been of months duration. MD Complaint: chest pain Onset/Timin -: hour(s) Onset: during rest Pain Location: substernal Pain Radiation: RUE Severity: severe Severity scale (1-10): 8 Quality: aching Consistency: constant Improves With: nothing Worsens With: nothing Treatments Prior to Arrival: aspirin, nitroglycerin - Related Data Home Medications Medication Instructions Recorded Confirmed Ascorbic Acid [Vitamin C] 500 mg PO DAILY 08/30/17 08/30/17 Cyanocobalamin [Vitamin B-12] 500 mcg PO DAILY 08/30/17 08/30/17 HYDROcodone/APAP 10-325MG [[place] 1 tab PO Q6H PRN 08/30/17 08/30/17 10-325] Lisinopril [Zestril] 2.5 mg PO DAILY 08/30/17 08/30/17 Pyridoxine HCl (Vitamin B6) 100 mg PO DAILY 08/30/17 08/30/17 [Vitamin B-6] Spironolactone [Aldactone] 25 mg PO DAILY 08/30/17 08/30/17 Vitamin E (Dl,Tocopheryl Acet) 400 unit PO DAILY 08/30/17 08/30/17 [Vitamin E] Previous Rx's Medication Instructions Recorded Aspirin EC [Ecotrin Low Dose] 81 mg PO DAILY #30 tablet. 07/21/17 Carvedilol [Coreg] 12.5 mg PO BID #60 tab 07/21/17 Hydrocodone/Acetaminophen [[place] 1 each PO Q6HR PRN #16 tab 08/31/17 5-325] Ondansetron Odt [Zofran ODT] 4 mg PO Q8HR PRN #10 tab 08/31/17 Allergies Allergy/AdvReac Type Severity Reaction Status Date / Time No Known Allergies Allergy Verified 08/30/17 20:52 Review of Systems ROS Statement: Those systems with pertinent positive or pertinent negative responses have been documented in the HPI. ROS Other: All systems not noted in ROS Statement are negative. Constitutional: Denies: fever, chills, weakness Eyes: Denies: vision change Respiratory: Denies: cough, dyspnea, wheezes Cardiovascular: Reports: chest pain. Denies: palpitations, orthopnea, edema, syncope Gastrointestinal: Denies: abdominal pain, nausea, vomiting, diarrhea Musculoskeletal: Denies: back pain Skin: Denies: rash Neurological: Denies: headache, weakness, numbness, paresthesias EKG Findings - EKG Comments: EKG Findings:: There are T inversions in leads 1, aVL, V4 through V6. - EKG Results: EKG: interpreted by VALED, sinus rhythm (8 approximately 75 bpm), normal axis, normal QRS - Blocks, Lovely, Hypertrophy, ST Abn: Repolarization changes or abnormalities: Q-T interval prolongation Past Medical History Past Medical History: Asthma, Chest Pain / Angina, Heart Failure, CVA/TIA, Deep Vein Thrombosis (DVT), Hypertension, Pulmonary Embolus (PE) Additional Past Medical History / Comment(s): Pulmonary embolism X3, DVT in arms and legs, low blood sugar, back issues History of Any Multi-Drug Resistant Organisms: None Reported Past Surgical History: Tubal Ligation Additional Past Surgical History / Comment(s): Gallbladder surgery, patient not sure if she had cholecystectomy. Gallstones Past Anesthesia/Blood Transfusion Reactions: No Reported Reaction Past Psychological History: No Psychological Hx Reported Smoking Status: Current every day smoker Past Alcohol Use History: None Reported Past Drug Use History: None Reported - Past Family History Mother Family Medical History: Diabetes Mellitus Father Family Medical History: Cancer Additional Family Medical History / Comment(s): Prostate CA General Exam Limitations: no limitations General appearance: alert, in no apparent distress, obese Head exam: Present: atraumatic, normocephalic Eye exam: Present: normal appearance. Absent: scleral icterus, conjunctival injection ENT exam: Present: normal oropharynx Neck exam: Present: normal inspection, full ROM Respiratory exam: Present: normal lung sounds bilaterally. Absent: respiratory distress, wheezes, rales, rhonchi, stridor Cardiovascular Exam: Present: regular rate, normal rhythm, normal heart sounds. Absent: systolic murmur, diastolic murmur, rubs, gallop GI/Abdominal exam: Present: soft. Absent: distended, tenderness, guarding, rebound, rigid, mass Extremities exam: Present: normal inspection, full ROM, normal capillary refill. Absent: tenderness, pedal edema, calf tenderness Back exam: Present: normal inspection. Absent: CVA tenderness (R), CVA tenderness (L) Neurological exam: Present: alert Skin exam: Present: warm, dry, intact, normal color. Absent: rash Course Vital Signs 08/30/17 08/30/17 08/30/17 20:32 21:23 22:23 Temperature 98.3 F Pulse Rate 80 74 74 Respiratory 18 18 17 Rate Blood Pressure 118/67 120/55 132/83 O2 Sat by Pulse 100 99 95 Oximetry 08/30/17 08/31/17 08/31/17 23:23 00:23 01:22 Temperature Pulse Rate 65 74 68 Respiratory 19 18 19 Rate Blood Pressure 110/60 106/57 108/56 O2 Sat by Pulse 97 93 L 97 Oximetry Chest Pain [facility] Patient's 52-year-old woman with substernal epigastric chest pain and minimal elevations of her pancreatic tests. She also had a heart catheterization approximately one month ago that was normal, with no significant lesions. She has had relief of symptoms with medication. Discussed appropriate further care and follow-up. Disposition Clinical Impression: Pancreatitis, Paresthesia Disposition: HOME SELF-CARE Condition: Good Instructions: Chest Pain (ED), Pancreatitis (ED), Paresthesia (ED) Prescriptions: Hydrocodone/Acetaminophen [[place] 5-325] 1 each PO Q6HR PRN #16 tab PRN Reason: Pain Ondansetron Odt [Zofran ODT] 4 mg PO Q8HR PRN #10 tab PRN Reason: Nausea Referrals: Dayron Shay MD [STAFF PHYSICIAN] - 1-2 days Celia Lozada MD [STAFF PHYSICIAN] - 1-2 days
[2017-08-30 21:24] LABS: Aty Lym Flag Slight; Basophils % (A) 1 %; CH 29.9; Eosinophils # (A) 0.1 k/uL (0-0.7); Eosinophils % (A) 3 %; HCT 44.4 % (34.0-46.0); HDW 2.55; HGB 14.2 gm/dL (11.4-16.0); Luc # (Auto) 0.19; Luc % (Auto) 5; Lymphocytes # (A) 1.4 k/uL (1.0-4.8); Lymphocytes % (A) 35 %; MCHC 31.9 g/dL (31.0-37.0); Mean Platelet Volume 7.7; Monocytes # (A) 0.3 k/uL (0-1.0); Monocytes % (A) 9 %; Neutrophils # (A) 1.9 k/uL (1.3-7.7); Neutrophils % (A) 48 %; RBC 4.88 m/uL (3.80-5.40); RDW 12.3 % (11.5-15.5); WBC 3.9 k/uL (3.8-10.6); WBC (Perox) 4.03
[2017-08-30] MEDS ORDERED: HYDROcodone/APAP 10-325MG 1 EACH TAB PO ONE (21:34)
--- NOTE | 2017-08-30 21:35 | XR ---
EXAMINATION TYPE: XR chest 1V portable DATE OF EXAM: 08/30/2017 COMPARISON: 08/06/2017 HISTORY: Chest pain TECHNIQUE: Single frontal view of the chest is obtained. FINDINGS: Heart and mediastinum are within normal limits. There is no heart failure. There are chest leads. Costophrenic angles are clear. Lungs are clear. IMPRESSION: No active cardiopulmonary disease. No change.
[2017-08-30 22:27] LABS: INR 1.2 (<1.2); Prothrombin Time 11.6 sec (9.0-12.0)
[2017-08-30 22:40] LABS: ALT 43 U/L (9-52); AST 25 U/L (14-36); Alkaline Phosphatase 100 U/L (38-126); Amylase 137 U/L (30-110); Anion Gap 8 mmol/L; Blood Urea Nitrogen 13 mg/dL (7-17); Calcium 9.2 mg/dL (8.4-10.2); Carbon Dioxide 26 mmol/L (22-30); Chloride 108 mmol/L (98-107); Glucose 77 mg/dL (74-99); Magnesium 1.8 mg/dL (1.6-2.3); Non-African American GFR(MDRD) >60 (>60 ml/min/1.73 sqM); Potassium 4.3 mmol/L (3.5-5.1); Sodium 142 mmol/L (137-145); Total Bilirubin 0.2 mg/dL (0.2-1.3); Total Protein 6.8 g/dL (6.3-8.2)
[2017-08-30 22:42] LABS: Creatine Kinase 50 U/L (30-135)
[2017-08-30 22:45] LABS: Appearance,Urine Clear (Clear); Bilirubin,Urine Negative (Negative); Glucose,Urine (UA) Negative (Negative); Ketones,Urine Negative (Negative); Leukocyte Esterase,Urine Small (Negative); Mucus,Urine Rare /hpf; Nitrite,Urine Negative (Negative); PH, Urine 5.5 (5.0-8.0); Particle Count 3354; Protein,Urine Negative (Negative); RBC,Urine 1 /hpf (0-5); Specific Gravity,Urine 1.022 (1.001-1.035); Squamous Epithelial Cell,Urine 3 /hpf (0-4); UA Billing (MACRO vs. MICRO) MICRO; Urobilinogen,Urine <2.0 mg/dL (<2.0); WBC,Urine 5 /hpf (0-5)
[2017-08-30 22:55] LABS: Creatine Kinase MB 0.4 ng/mL (0.0-2.4); Troponin I <0.012 ng/mL (0.000-0.034)
[2017-08-31 01:23] VITALS: BP 108/56; PULSE 68; RESP 19
[2017-08-31] MEDS: MORPHINE SULFATE 2 MG/ML SYRINGE IVP STA ×2 (04:01→04:24)
[2017-08-31] MEDS ORDERED: MORPHINE SULFATE 2 MG/ML SYRINGE IM STA (04:23)
== END 2017-08-31 05:07 | disposition home or self-care (01) ==
LOC: EC 20:14
DX: K85.90 Acute pancreatitis without necrosis or infection, unspecified (principal); R20.2 Paresthesia of skin; I11.0 Hypertensive heart disease with heart failure; I50.9 Heart failure, unspecified; Z86.73 Personal history of transient ischemic attack (TIA), and cerebral infarction without residual deficits; Z86.711 Personal history of pulmonary embolism; Z86.718 Personal history of other venous thrombosis and embolism; Z98.890 Other specified postprocedural states; Z79.899 Other long term (current) drug therapy
CPT/HCPCS: 36415 ×2; 93005; 85379; 80053; 82150; 82550; 82553; 83690; 83735; 84484 ×2; 85025; 85610; 81001; 80320; 71010; 99285; 96372; J2270

== ENCOUNTER 2018-05-04 00:54 | Observation (INO) | payer OTHER ==
[2018-05-04] MEDS ORDERED: ASPIRIN 81 MG PO STA (01:14)
[2018-05-04] MEDS ORDERED: NITROGLYCERIN SL TABS 0.4 MG TAB SUBLINGUAL STA ×3 (01:14)
--- NOTE | 2018-05-04 01:17 | ED ---
General Adult HPI - General Chief complaint: Chest Pain Stated complaint: Chest Pain, SOB Time Seen by Provider: 05/04/18 01:01 Source: patient, EMS, RN notes reviewed Mode of arrival: EMS Limitations: no limitations - History of Present Illness Initial comments: Patient is a pleasant 52-year-old female presenting to the emergency Department with complaints of chest discomfort. Onset of symptoms was an hour or 2 ago. Patient was at work. Patient complains of pressure tightness and burning in the left chest. There is some mild associated dyspnea. No nausea or diaphoresis. Patient does have a history of similar symptoms previously associated with CHF as well as blood clots. Patient is on Coumadin however has not had her level checked in several weeks. No leg pain or leg swelling. - Related Data Home Medications Medication Instructions Recorded Confirmed Ascorbic Acid [Vitamin C] 500 mg PO DAILY 08/30/17 08/30/17 Cyanocobalamin [Vitamin B-12] 500 mcg PO DAILY 08/30/17 08/30/17 HYDROcodone/APAP 10-325MG [[place] 1 tab PO Q6H PRN 08/30/17 08/30/17 10-325] Lisinopril [Zestril] 2.5 mg PO DAILY 08/30/17 08/30/17 Pyridoxine HCl (Vitamin B6) 100 mg PO DAILY 08/30/17 08/30/17 [Vitamin B-6] Spironolactone [Aldactone] 25 mg PO DAILY 08/30/17 08/30/17 Vitamin E (Dl,Tocopheryl Acet) 400 unit PO DAILY 08/30/17 08/30/17 [Vitamin E] Previous Rx's Medication Instructions Recorded Aspirin EC [Ecotrin Low Dose] 81 mg PO DAILY #30 tablet. 07/21/17 Carvedilol [Coreg] 12.5 mg PO BID #60 tab 07/21/17 Hydrocodone/Acetaminophen [[place] 1 each PO Q6HR PRN #16 tab 08/31/17 5-325] Ondansetron Odt [Zofran ODT] 4 mg PO Q8HR PRN #10 tab 08/31/17 Allergies Allergy/AdvReac Type Severity Reaction Status Date / Time latex Allergy Rash/Hives Verified 05/04/18 01:08 Review of Systems ROS Statement: Those systems with pertinent positive or pertinent negative responses have been documented in the HPI. ROS Other: All systems not noted in ROS Statement are negative. Constitutional: Denies: fever Eyes: Denies: eye pain ENT: Denies: ear pain Respiratory: Reports: dyspnea Cardiovascular: Reports: chest pain Endocrine: Denies: fatigue Gastrointestinal: Denies: abdominal pain Genitourinary: Denies: dysuria Musculoskeletal: Denies: back pain Skin: Denies: rash Neurological: Denies: weakness Past Medical History Past Medical History: Asthma, Chest Pain / Angina, Heart Failure, CVA/TIA, Deep Vein Thrombosis (DVT), Hypertension, Pulmonary Embolus (PE) Additional Past Medical History / Comment(s): Pulmonary embolism X3, DVT in arms and legs, low blood sugar, back issues History of Any Multi-Drug Resistant Organisms: None Reported Past Surgical History: Tubal Ligation Additional Past Surgical History / Comment(s): Gallbladder surgery, patient not sure if she had cholecystectomy. Gallstones Past Anesthesia/Blood Transfusion Reactions: No Reported Reaction Past Psychological History: No Psychological Hx Reported Smoking Status: Current every day smoker Past Alcohol Use History: None Reported Past Drug Use History: None Reported - Past Family History Mother Family Medical History: Diabetes Mellitus Father Family Medical History: Cancer Additional Family Medical History / Comment(s): Prostate CA General Exam Limitations: no limitations General appearance: alert, in no apparent distress, obese Head exam: Present: atraumatic Eye exam: Present: normal appearance, PERRL ENT exam: Present: normal oropharynx Neck exam: Present: normal inspection Respiratory exam: Present: wheezes (Mild expiratory). Absent: chest wall tenderness Cardiovascular Exam: Present: regular rate, normal rhythm Expanded Peripheral pulses: 2+: Radial (R), Radial (L), Dorsalis Pedis (R), Dorsalis Pedis (L) GI/Abdominal exam: Present: soft. Absent: tenderness Extremities exam: Present: normal inspection. Absent: pedal edema, calf tenderness Back exam: Present: normal inspection Neurological exam: Present: alert Psychiatric exam: Present: normal affect, normal mood Skin exam: Present: normal color Course Vital Signs 05/04/18 00:55 Temperature 99.0 F Pulse Rate 83 Respiratory 20 Rate Blood Pressure 143/78 O2 Sat by Pulse 96 Oximetry EKG Findings - EKG Comments: EKG Findings:: Normal sinus rhythm 78. ME 156. QRS 70. QT 432. QTC 42. Normal axis. Normal QRS. No acute ST change. Medical Decision Making - Medical Decision Making Patient reevaluated and resting comfortably in bed. Patient sleeping and easily arousable to voice. Patient saw some discomfort however still refuses nitroglycerin. This is secondary to history of associated headache with nitroglycerin. Patient is updated on results and plan. Case discussed in detail with Dr. Salgado, who will admit for hospital call. - Lab Data Result diagrams: 05/04/18 01:20 05/04/18 01:20 Lab Results 05/04/18 05/04/18 05/04/18 Range/Units 01:20 01:20 01:20 WBC 4.5 (3.8-10.6) k/uL RBC 5.07 (3.80-5.40) m/uL Hgb 15.1 (11.4-16.0) gm/dL Hct 45.2 (34.0-46.0) % MCV 89.1 (80.0-100.0) fL MCH 29.7 (25.0-35.0) pg MCHC 33.3 (31.0-37.0) g/dL RDW 12.6 (11.5-15.5) % Plt Count 218 (150-450) k/uL PT (9.0-12.0) sec INR (<1.2) APTT (22.0-30.0) sec Sodium 141 (137-145) mmol/L Potassium 4.0 (3.5-5.1) mmol/L Chloride 112 H (98-107) mmol/L Carbon Dioxide 22 (22-30) mmol/L Anion Gap 7 mmol/L BUN 16 (7-17) mg/dL Creatinine 0.70 (0.52-1.04) mg/dL Est GFR (CKD-EPI)AfAm >90 (>60 ml/min/1.73 sqM) Est GFR (CKD-EPI)NonAf >90 (>60 ml/min/1.73 sqM) Glucose 101 H (74-99) mg/dL Calcium 9.3 (8.4-10.2) mg/dL Magnesium 1.8 (1.6-2.3) mg/dL Total Bilirubin 0.4 (0.2-1.3) mg/dL AST 28 (14-36) U/L ALT 49 (9-52) U/L Alkaline Phosphatase 110 (38-126) U/L Total Creatine Kinase 122 (30-135) U/L CK-MB (CK-2) 0.7 (0.0-2.4) ng/mL CK-MB (CK-2) Rel Index 0.6 Troponin I 0.014 (0.000-0.034) ng/mL NT-Pro-B Natriuret Pep pg/mL Total Protein 7.2 (6.3-8.2) g/dL Albumin 3.9 (3.5-5.0) g/dL 05/04/18 05/04/18 Range/Units 01:20 01:20 WBC (3.8-10.6) k/uL RBC (3.80-5.40) m/uL Hgb (11.4-16.0) gm/dL Hct (34.0-46.0) % MCV (80.0-100.0) fL MCH (25.0-35.0) pg MCHC (31.0-37.0) g/dL RDW (11.5-15.5) % Plt Count (150-450) k/uL PT 27.0 H (9.0-12.0) sec INR 3.0 H (<1.2) APTT 31.5 H (22.0-30.0) sec Sodium (137-145) mmol/L Potassium (3.5-5.1) mmol/L Chloride (98-107) mmol/L Carbon Dioxide (22-30) mmol/L Anion Gap mmol/L BUN (7-17) mg/dL Creatinine (0.52-1.04) mg/dL Est GFR (CKD-EPI)AfAm (>60 ml/min/1.73 sqM) Est GFR (CKD-EPI)NonAf (>60 ml/min/1.73 sqM) Glucose (74-99) mg/dL Calcium (8.4-10.2) mg/dL Magnesium (1.6-2.3) mg/dL Total Bilirubin (0.2-1.3) mg/dL AST (14-36) U/L ALT (9-52) U/L Alkaline Phosphatase (38-126) U/L Total Creatine Kinase (30-135) U/L CK-MB (CK-2) (0.0-2.4) ng/mL CK-MB (CK-2) Rel Index Troponin I (0.000-0.034) ng/mL NT-Pro-B Natriuret Pep 83 pg/mL Total Protein (6.3-8.2) g/dL Albumin (3.5-5.0) g/dL - Radiology Data Radiology results: image reviewed (Chest x-ray shows no acute process) Disposition Clinical Impression: Chest pain Disposition: ADMITTED IP TO THIS HOSP Referrals: None,Stated [REFERRING] - 1-2 days Decision Time: 02:32
[2018-05-04 01:32] LABS: HCT 45.2 % (34.0-46.0); HGB 15.1 gm/dL (11.4-16.0); MCH 29.7 pg (25.0-35.0); MCHC 33.3 g/dL (31.0-37.0); MCV 89.1 fL (80.0-100.0); Platelet Count 218 k/uL (150-450); RBC 5.07 m/uL (3.80-5.40); RDW 12.6 % (11.5-15.5); WBC 4.5 k/uL (3.8-10.6)
[2018-05-04 01:43] LABS: ALT 49 U/L (9-52); AST 28 U/L (14-36); Albumin 3.9 g/dL (3.5-5.0); Alkaline Phosphatase 110 U/L (38-126); Anion Gap 7 mmol/L; Blood Urea Nitrogen 16 mg/dL (7-17); Calcium 9.3 mg/dL (8.4-10.2); Carbon Dioxide 22 mmol/L (22-30); Chloride 112 mmol/L (98-107); Glucose 101 mg/dL (74-99); Magnesium 1.8 mg/dL (1.6-2.3); Sodium 141 mmol/L (137-145); Total Bilirubin 0.4 mg/dL (0.2-1.3); Total Protein 7.2 g/dL (6.3-8.2)
--- NOTE | 2018-05-04 02:06 | XR ---
EXAMINATION TYPE: XR chest 2V DATE OF EXAM: 05/04/2018 COMPARISON: 08/30/2017 HISTORY: Chest pain TECHNIQUE: Frontal and lateral views of the chest are obtained. FINDINGS: Heart and mediastinum are normal. Lungs are clear. Costophrenic angles are clear. There ar e chest leads. Bony thorax is intact. There is some spurring in the thoracic spine. IMPRESSION: No active cardiopulmonary disease. No change.
[2018-05-04 02:09] LABS: Partial Thromboplastin Time 31.5 sec (22.0-30.0)
[2018-05-04 02:11] LABS: Creatine Kinase MB 0.7 ng/mL (0.0-2.4); Troponin I 0.014 ng/mL (0.000-0.034)
[2018-05-04] MEDS ORDERED: NITROGLYCERIN SL TABS 0.4 MG TAB SUBLINGUAL PRN (02:32)
[2018-05-04 04:42] VITALS: RESP 18
[2018-05-04 04:51] VITALS: BMI 39.1
[2018-05-04] MEDS: NITROGLYCERIN OINT 1 INCH/GM PACKET TOPICAL SCH ×2 (05:18→06:09)
[2018-05-04] MEDS ORDERED: KETOROLAC 30 MG/ML 1 ML VIAL IVP PRN (08:07)
[2018-05-04 08:08] LABS: Creatine Kinase MB 0.7 ng/mL (0.0-2.4); Troponin I 0.013 ng/mL (0.000-0.034)
[2018-05-04] MEDS ORDERED: LISINOPRIL 2.5 MG TAB PO SCH (09:00)
[2018-05-04] MEDS ORDERED: SPIRONOLACTONE 25 MG TAB PO SCH (09:00)
[2018-05-04] MEDS ORDERED: CARVEDILOL 12.5 MG TAB PO SCH (09:00)
[2018-05-04] MEDS: methylPREDNISolone SOD SUCCI 40 MG/ML 1 ML VIAL IV SCH ×2 (09:13→13:43)
--- NOTE | 2018-05-04 10:53 | ECHOF ---
Referral Reason:cp MEASUREMENTS -------- HEIGHT: 170.2 cm WEIGHT: 119.3 kg BP: 121/75 IVSd: 1.3 cm (0.6 - 1.1) LVIDd: 4.8 cm (3.9 - 5.3) LVPWd: 1.2 cm (0.6 - 1.1) IVSs: 1.3 cm LVIDs: 4.5 cm LVPWs: 1.3 cm LA Diam: 3.5 cm (2.7 - 3.8) Ao Diam: 2.6 cm (2.0 - 3.7) AV Cusp: 1.9 cm (1.5 - 2.6) LA Diam: 4.0 cm (2.7 - 3.8) MV EXCURSION: 19.913 mm (> 18.000) MV EF SLOPE: 54 mm/s (70 - 150) EPSS: 0.7 cm MV E Moises: 0.42 m/s MV DecT: 254 ms MV A Moises: 0.49 m/s MV E/A Ratio: 0.87 RAP: 5.00 mmHg RVSP: 15.10 mmHg FINDINGS -------- Sinus rhythm. This was a techncally difficult study with suboptimal views, , Lumason utilized for enhancement of im ages. The left ventricular size is normal. There is mild concentric left ventricular hypertrophy. Overa ll left ventricular systolic function is low-normal with, an EF between 50 - 55 %. The right ventricle is normal in size. The left atrial size is normal. The right atrial size is normal. 5.0mg OF Lumason UTLIZED: 2 OR MORE WALL SEGMENTS NOT VISUALIZED. There is mild aortic valve sclerosis. There is no evidence of aortic regurgitation. Mild mitral annular calcification present. Mild mitral regurgitation is present. Mild tricuspid regurgitation present. There is no evidence of pulmonary hypertension. The right v entricular systolic pressure, as measured by Doppler, is 15.10mmHg. The pulmonic valve was not well visualized. The aortic root size is normal. There is no pericardial effusion. CONCLUSIONS -------- 1. This was a techncally difficult study with suboptimal views, , Lumason utilized for enhancement of images. 2. The left ventricular size is normal. 3. There is mild concentric left ventricular hypertrophy. 4. Overall left ventricular systolic function is low-normal with, an EF between 50 - 55 %. 5. The right ventricle is normal in size. 6. The left atrial size is normal. 7. The right atrial size is normal. 8. 5.0mg OF Lumason UTLIZED: 2 OR MORE WALL SEGMENTS NOT VISUALIZED. 9. There is mild aortic valve sclerosis. 10. Mild mitral annular calcification present. 11. Mild mitral regurgitation is present. 12. Mild tricuspid regurgitation present. 13. There is no evidence of pulmonary hypertension. 14. The right ventricular systolic pressure, as measured by Doppler, is 15.10mmHg. 15. The pulmonic valve was not well visualized. 16. The aortic root size is normal. 17. There is no pericardial effusion. CLIENT ASSOCIATE: Ginger Healy RDCS
--- NOTE | 2018-05-04 11:04 | P.CRDCN ---
History of Present Illness History of present illness: Mrs. Sinha is 52-year-old female past medical history significant for non-ischemic cardiomyopathy, asthma, hypertension, history of PE on prison anticoagulation, chronic tobacco use and morbid obesity. She follows with a senior drupal developer in [place], [place]. We have been asked to see her in consultation for chest pain. She states she has had pain in her chest intermittently for the last few weeks. She was recently hospitalized at [facility] for the same. She states the pain is in her entire chest and abdomen. It is worse with movement or certain positions and worse when she takes a deep breath. She winces in pain with palpitation. She c/o associated shortness of breath at times as well. She denies palpitations, nausea, vomiting , diaphoresis or dizziness. She denies PND, orhopnea, cough, fever or chills. She states she has had a history of PE in the past and is on coumadin daily. Most recent PE was many years ago. She underwent cardiac catheterization 2016 which revealed normal coronary arteries and EF 40-45%. At that time her medications were optimized and she followed up with her primary senior drupal developer. She last saw him 3 months ago she states. Echocardiogram obtained on this admission reveals low normal left ventricular systolic function with ejection fraction 50-55%, mild MR and mild TR. She is demanding pain medication in the form of norco or IV opiates. She has refused nitroglycerin or toradol as offered per primary. She is exhibiting drug seeking and aggressive behaviors with staff members. EKG reveals sinus mechanism with no acute ST or T-wave abnormalities. Chest xray negative for an acute cardiopulmonary process. Laboratory data reviewed, hemoglobin 15.1, platelets 218, INR 3.0, d-dimer 0.22 , sodium 141, potassium 4.0, magnesium 1.8, cardiac enzymes negative 3, proBNP 83. Current cardiac medications include Coumadin 5 mg daily, Aldactone 25 mg daily, lisinopril 2.5 mg daily, carvedilol 12.5 mg twice a day. Review of Systems At the time of my exam: CONSTITUTIONAL: Denies fever. Denies chills. EYES: Denies blurred vision. Denies vision changes. Denies eye pain. EARS, NOSE, MOUTH & THROAT: Denies headache. Denies sore throat. Denies ear pain. CARDIOVASCULAR: Denies chest pain. Denies shortness of breath. Denies orthopnea. Denies PND. Denies palpitations. RESPIRATORY: Denies cough. GASTROINTESTINAL: Complains of abdominal pain. Denies diarrhea. Denies constipation. Denies nausea. Denies vomiting. MUSCULOSKELETAL: Complains of pleuritic pain. INTEGUMENTARY: Denies pruitis. Denies rash. NEUROLOGIC: Denies numbness. Denies tingling. Denies weakness. PSYCHIATRIC: Denies anxiety. Denies depression. ENDOCRINE: Denies fatigue. Denies weight change. Denies polydipsia. Denies polyurina. GENITOURINARY: Denies burning, hematuria or urgency with micturation. HEMATOLOGIC: Denies history of anemia. Denies bleeding. Past Medical History Past Medical History: Asthma, Chest Pain / Angina, Heart Failure, CVA/TIA, Deep Vein Thrombosis (DVT), Hypertension, Pulmonary Embolus (PE) Additional Past Medical History / Comment(s): Pulmonary embolism X3, DVT in arms and legs, low blood sugar, back issues History of Any Multi-Drug Resistant Organisms: None Reported Past Surgical History: Tubal Ligation Additional Past Surgical History / Comment(s): Gallbladder surgery, patient not sure if she had cholecystectomy. Gallstones Past Anesthesia/Blood Transfusion Reactions: No Reported Reaction Past Psychological History: No Psychological Hx Reported Smoking Status: Current every day smoker Past Alcohol Use History: None Reported Past Drug Use History: None Reported - Past Family History Mother Family Medical History: Diabetes Mellitus Father Family Medical History: Cancer Additional Family Medical History / Comment(s): Prostate CA Medications and Allergies Home Medications Medication Instructions Recorded Confirmed Type Carvedilol [Coreg] 12.5 mg PO BID #60 tab 07/21/17 05/04/18 Rx HYDROcodone/APAP 10-325MG [Maple 1 tab PO TID PRN 08/30/17 05/04/18 History 10-325] Lisinopril [Zestril] 2.5 mg PO DAILY 08/30/17 05/04/18 History Spironolactone [Aldactone] 25 mg PO DAILY 08/30/17 05/04/18 History Albuterol Inhaler [Ventolin Hfa 2 puff INHALATION RT-Q6H PRN 05/04/18 05/04/18 History Inhaler] Fluticasone Nasal [place] [Flonase 2 spr EA NOSTRIL DAILY PRN 05/04/18 05/04/18 History Nasal [place]] Montelukast [Singulair] 10 mg PO DAILY 05/04/18 05/04/18 History Omeprazole 20 mg PO DAILY 05/04/18 05/04/18 History Promethazine HCl 25 mg PO Q6H PRN 05/04/18 05/04/18 History Warfarin [Coumadin] 5 mg PO HS 05/04/18 05/04/18 History Allergies Allergy/AdvReac Type Severity Reaction Status Date / Time latex Allergy Rash/Hives Verified 05/04/18 08:46 Physical Exam Vitals: Vital Signs Temp Pulse Pulse Resp BP BP BP 05/04/18 07:05 97.8 F 66 18 121/75 05/04/18 05:15 69 18 05/04/18 04:10 97.6 F 75 18 95/62 05/04/18 00:55 99.0 F 83 20 143/78 Pulse Ox 05/04/18 07:05 95 05/04/18 05:15 05/04/18 04:10 96 05/04/18 00:55 96 Intake and Output 05/03/18 05/04/18 05/04/18 22:59 06:59 14:59 Other: Voiding Method Toilet # Voids 1 Weight 119.7 kg Blood pressure 121/75 heart rate 66 afebrile maintaining oxygen saturation on room air GENERAL: This is a 52-year-old -[place] female in no apparent distress at the time of my examination. Morbidly obese. HEENT: Head is atraumatic, normocephalic. Pupils are equal, round. Sclerae anicteric. Conjunctivae are clear. Mucous membranes of the mouth are moist. Neck is supple. There is no jugular venous distention. No carotid bruit is heard. LUNGS: Clear to auscultation no wheezes, rales or rhonchi. No chest wall tenderness is noted on palpation or with deep breathing. HEART: Regular rate and rhythm without murmurs, rubs or gallops. S1 and S2 heard. ABDOMEN: Soft, nontender. Bowel sounds are heard. No organomegaly noted. EXTREMITIES: No evidence of peripheral edema and no calf tenderness noted. VASCULAR: Radial and dorsalis pedis pulses palpated, no evidence of clubbing. NEUROLOGIC: Patient is awake, alert and oriented x3. Results 05/04/18 01:20 05/04/18 01:20 Cardiac Enzymes 05/04/18 05/04/18 05/04/18 Range/Units 01:20 01:20 06:51 AST 28 (14-36) U/L CK-MB (CK-2) 0.7 0.7 (0.0-2.4) ng/mL Troponin I 0.014 0.013 (0.000-0.034) ng/mL Coagulation 05/04/18 Range/Units 01:20 PT 27.0 H (9.0-12.0) sec APTT 31.5 H (22.0-30.0) sec CBC 05/04/18 Range/Units 01:20 WBC 4.5 (3.8-10.6) k/uL RBC 5.07 (3.80-5.40) m/uL Hgb 15.1 (11.4-16.0) gm/dL Hct 45.2 (34.0-46.0) % Plt Count 218 (150-450) k/uL Comprehensive Metabolic Panel 05/04/18 Range/Units 01:20 Sodium 141 (137-145) mmol/L Potassium 4.0 (3.5-5.1) mmol/L Chloride 112 H (98-107) mmol/L Carbon Dioxide 22 (22-30) mmol/L BUN 16 (7-17) mg/dL Creatinine 0.70 (0.52-1.04) mg/dL Glucose 101 H (74-99) mg/dL Calcium 9.3 (8.4-10.2) mg/dL AST 28 (14-36) U/L ALT 49 (9-52) U/L Alkaline Phosphatase 110 (38-126) U/L Total Protein 7.2 (6.3-8.2) g/dL Albumin 3.9 (3.5-5.0) g/dL Current Medications Generic Name Dose Route Start Last Admin Trade Name Freq PRN Reason Stop Dose Admin Aspirin 325 mg 05/05/18 09:00 Aspirin PO DAILY [facility] Carvedilol 12.5 mg 05/04/18 09:00 05/04/18 09:13 Coreg PO 12.5 mg BID MATTHEW Administration Ketorolac Tromethamine 15 mg 05/04/18 08:07 Toradol IVP 05/08/18 08:09 Q6HR PRN Mild to Moderate Pain Lisinopril 2.5 mg 05/04/18 09:00 05/04/18 09:13 Zestril PO 2.5 mg DAILY MATTHEW Administration Methylprednisolone Sodium Succinate 40 mg 05/04/18 08:15 05/04/18 09:13 Solu-Medrol IV 05/04/18 18:01 40 mg Q6HR MATTHEW Administration Nitroglycerin 1 inch 05/04/18 02:45 05/04/18 06:09 Nitro-Bid Oint TOPICAL Not Given Q6HR MATTHEW Nitroglycerin 0.4 mg 05/04/18 02:32 Nitrostat SUBLINGUAL Q5M PRN Chest Pain Sodium Chloride 10 ml 05/04/18 09:00 05/04/18 09:18 Saline Flush IV 10 ml BID MATTHEW Administration Spironolactone 25 mg 05/04/18 09:00 05/04/18 09:13 Aldactone PO 25 mg DAILY MATTHEW Administration Intake and Output 05/03/18 05/04/18 05/04/18 22:59 06:59 14:59 Other: Voiding Method Toilet # Voids 1 Weight 119.7 kg 05/04/18 01:20 05/04/18 01:20 Assessment and Plan Assessment: ASSESSMENT Pleuritic chest pain, atypical. An acute coronary event has been ruled out. History of PE in the past, on termite treater helper anticoagulation with coumadin. INR therapeutic, d-dimer normal. History of non-ischemic cardiomyopahty with EF 40-45% 07/2017 and no coronary artery disease on catheterization. EF has improved on maximum medical therapy. Hypertension Chronic nicotine dependence Morbid obesity PLAN Echocardiogram has been obtained and reviewed. LV systolic function has improved since July on maximum medical therapy. An acute coronary event has been ruled out with no EKG evidence of ischemia and negative cardiac enzymes. Stable from a cardiac perspective. Recommend anti-inflammatory pain medication for musculoskeletal pain. Smoking cessation highly recommended. Lifestyle modifications discussed for weight loss. Follow up with her primary senior drupal developer upon discharge. Thank you kindly for this consultation. Nurse Practitioner note has been reviewed, I agree with a documented findings and plan of care. Patient was seen and examined.
[2018-05-04 11:18] LABS: Eosinophils # (M) 0.23 k/uL (0-0.7); Lymphocytes # (M) 1.85 k/uL (1.0-4.8); Monocytes # (M) 0.32 k/uL (0-1.0); Neutrophils # (M) 2.12 k/uL (1.3-7.7); Neutrophils % (M) 47 %; Nucleated Red Blood Cells 0 /100 WBC (0-0); Total Cells Counted 100
[2018-05-04 12:22] VITALS: BP 104/64; PULSE 73; TEMP 97.5
[2018-05-05] MEDS ORDERED: ASPIRIN 325 MG TAB PO SCH (09:00)
== END 2018-05-04 14:33 | disposition home or self-care (01) ==
LOC: EC 00:54 → 3OBS 02:32
PROVIDERS: ADMIT Family Medicine; ATTEND Family Medicine
DX: R07.89 Other chest pain (principal); R10.9 Unspecified abdominal pain; R06.00 Dyspnea, unspecified; R06.02 Shortness of breath; R07.81 Pleurodynia; I11.0 Hypertensive heart disease with heart failure; I50.9 Heart failure, unspecified; J45.909 Unspecified asthma, uncomplicated; F17.200 Nicotine dependence, unspecified, uncomplicated; Z76.5 Malingerer [conscious simulation]; I42.9 Cardiomyopathy, unspecified; Z79.899 Other long term (current) drug therapy; Z91.040 Latex allergy status; Z79.01 Long term (current) use of anticoagulants; Z86.73 Personal history of transient ischemic attack (TIA), and cerebral infarction without residual deficits; Z86.718 Personal history of other venous thrombosis and embolism; Z86.711 Personal history of pulmonary embolism; Z83.3 Family history of diabetes mellitus; Z80.42 Family history of malignant neoplasm of prostate; E66.01 Morbid (severe) obesity due to excess calories; Z68.41 Body mass index [BMI] 40.0-44.9, adult
CPT/HCPCS: 99285 ×2; 96374; 36415; 93005; 85379; 83880; 80053; 82550; 82553; 83735; 84484; 85025; 85610; 85730; 71046; G0378; C8929; J2920; Q9950; 93306